=== PATIENT | male | born 1980 | race Caucasian/White ===

== ENCOUNTER 2021-01-21 09:43 | Outpatient (CLI) | payer MEDICARE, MEDICAID, SELFPAY ==
[2021-01-21 09:58] LABS: Post Vasectomy Sperm Presence None Seen (None Seen)
== END 2021-01-21 09:44 | disposition home or self-care (01) ==
LOC: CHSLAB 09:49
PROVIDERS: PCP Family Medicine; Visit Provider Family Medicine
DX: Z30.09 Encounter for other general counseling and advice on contraception (principal); Z30.8 Encounter for other contraceptive management; Z98.52 Vasectomy status
CPT/HCPCS: 88160; 89321